=== PATIENT | female | born 1950 | race Caucasian/White ===

== ENCOUNTER 2019-03-04 07:49 | Inpatient (IN) | payer OTHER ==
--- NOTE | 2019-03-04 07:55 | EDPHY ---
H & P Time Seen by Provider: 03/04/19 07:55 HPI/ROS: CHIEF COMPLAINT: Left-sided weakness, ataxia HISTORY OF PRESENT ILLNESS: The patient presents the emergency department after she woke this morning with left-sided weakness and ataxia. The patient reports mild ongoing symptoms. She denies headache. The patient denies prior history of stroke or TIA. The patient reportedly was last normal at 10:00 a.m. Last night when she went to bed. The patient does have a pacemaker for history of heart block. The patient is not anticoagulated. The patient denies any history of fall or trauma. She denies additional acute medical complaints. REVIEW OF SYSTEMS: A comprehensive 10 point review of systems is otherwise negative aside from elements mentioned in the history of present illness. Source: Patient Exam Limitations: No limitations - Medical/Surgical History PMH: Past medical history: Arrhythmia, permanent pacemaker - Family History Significant Family History: No pertinent family hx - Social History Smoking Status: Never smoked - Physical Exam Exam: General Appearance: Alert, no distress Eyes: Pupils equal and round no pallor or injection ENT, Mouth: Mucous membranes moist Respiratory: There are no retractions, lungs are clear to auscultation Cardiovascular: Regular rate and rhythm Gastrointestinal: Abdomen is soft and nontender, no masses, bowel sounds normal Neurological: Alert and oriented x4, 5/5 strength noted all 4 extremities, slight drift noted in left upper extremity, mild left facial droop Skin: Warm and dry, no rashes Musculoskeletal: Neck is supple nontender Extremities: symmetrical, full range of motion Constitutional: Initial Vital Signs Temperature (C) 36.9 C 03/04/19 07:56 Heart Rate 57 L 03/04/19 07:56 Respiratory Rate 16 03/04/19 07:56 Blood Pressure 186/87 H 03/04/19 07:56 O2 Sat (%) 97 03/04/19 07:56 O2 Delivery Mode Room Air Allergies/Adverse Reactions: Penicillins Allergy (Verified 03/04/19 07:55) Home Medications: Medication Instructions Recorded Amlodipine Besylate 03/04/19 HCTZ (*) 03/04/19 Micardis 03/04/19 Medical Decision Making - Diagnostics Imaging Results: Imaging Impressions Head CT 03/04/19 08:18 Impression: 1. No acute intracranial process. 2. Age-appropriate generalized cerebral volume loss with sequelae of chronic microvascular ischemic disease. Findings and recommendations discussed with Keith Mcclain at 848 hour, 2018. Head CTA 03/04/19 08:18 Impression: 1. No acute vascular findings. 2. Occlusion of the left brachiocephalic vein. 3. Degenerative change in the cervical spine 4. Additional findings as above. Stenoses are calculated using [place] Symptomatic Carotid Endarterectomy Trial (NASCET) criteria. Findings discussed with Keith Mcclain on 03/04/2019 at 9:42 a.m. Neck CTA 03/04/19 08:18 Impression: 1. No acute vascular findings. 2. Occlusion of the left brachiocephalic vein. 3. Degenerative change in the cervical spine 4. Additional findings as above. Stenoses are calculated using [place] Symptomatic Carotid Endarterectomy Trial (NASCET) criteria. Findings discussed with Keith Mcclain on 03/04/2019 at 9:[address] angiogram head neck: Images reviewed by myself and discussed with radiologist Dr. Bernard. No evidence of critical stenosis or flow limiting disease present. ED Course/Re-evaluation: Patient presents to the ED with left-sided weakness truncal ataxia. Patient is noted to have an NIH stroke scale of 4-5. The patient woke up with the symptoms and is not a candidate for thrombolytics therapy. The patient did undergo a CT of the head which demonstrates no evidence of intracranial hemorrhage. Angiography of the head neck demonstrates no evidence of disease or flow limiting dissection. The patient does take an 81 mg aspirin on a daily basis. The patient has a cardiac pacemaker and cannot undergo MRI scanning. I did consult with the on-call neurologist who will see the patient in the hospital for further evaluation of her ischemic stroke. Consultation was made with the hospitalist service. The patient will be admitted primarily by Dr. Stoner. The patient will be seen in consultation by Dr. Moses Wills. Differential Diagnosis: Differential diagnosis considered includes hemorrhagic stroke, ischemic stroke, TIA, metabolic derangement - Data Points Laboratory Results: Laboratory Results 03/04/19 08:25 03/04/19 03/04/19 03/04/19 08:25 08:18 08:08 WBC 6.06 10^3/uL 10^3/uL (3.80-9.50) RBC 4.72 10^6/uL 10^6/uL (4.18-5.33) Hgb 14.3 g/dL g/dL (12.6-16.3) POC Hgb 14.6 gm/dL gm/dL (12.6-16.3) Hct 42.6 % % (38.0-47.0) POC Hct 43 % % (38-47) MCV 90.3 fL fL (81.5-99.8) MCH 30.3 pg pg (27.9-34.1) MCHC 33.6 g/dL g/dL (32.4-36.7) RDW 14.1 % % (11.5-15.2) Plt Count 357 10^3/uL 10^3/uL (150-400) MPV 9.3 fL fL (8.7-11.7) Neut % (Auto) 64.1 % % (39.3-74.2) Lymph % (Auto) 23.6 % % (15.0-45.0) Webb % (Auto) 10.9 % % (4.5-13.0) Eos % (Auto) 0.5 % L % (0.6-7.6) Baso % (Auto) 0.7 % % (0.3-1.7) Nucleat RBC Rel Count 0.0 % % (0.0-0.2) Absolute Neuts (auto) 3.89 10^3/uL 10^3/uL (1.70-6.50) Absolute Lymphs (auto) 1.43 10^3/uL 10^3/uL (1.00-3.00) Absolute Monos (auto) 0.66 10^3/uL 10^3/uL (0.30-0.80) Absolute Eos (auto) 0.03 10^3/uL 10^3/uL (0.03-0.40) Absolute Basos (auto) 0.04 10^3/uL 10^3/uL (0.02-0.10) Absolute Nucleated RBC 0.00 10^3/uL 10^3/uL (0-0.01) Immature Gran % 0.2 % % (0.0-1.1) Immature Gran # 0.01 10^3/uL 10^3/uL (0.00-0.10) POC Sodium 134 mEq/L L mEq/L (135-145) POC Potassium 3.8 mEq/L mEq/L (3.3-5.0) POC Chloride 96 mEq/L L mEq/L (97-110) POC Total CO2 27 mEq/L mEq/L (22-31) POC BUN 11 mg/dL mg/dL (7-23) POC Creatinine 0.7 mg/dL mg/dL (0.6-1.0) POC Glucose 129 mg/dL H mg/dL (70-100) POC Troponin I 0.01 ng/mL ng/mL (0.00-0.08) 03/04/19 08:05 WBC RBC Hgb POC Hgb Hct POC Hct MCV MCH MCHC RDW Plt Count MPV Neut % (Auto) Lymph % (Auto) Webb % (Auto) Eos % (Auto) Baso % (Auto) Nucleat RBC Rel Count Absolute Neuts (auto) Absolute Lymphs (auto) Absolute Monos (auto) Absolute Eos (auto) Absolute Basos (auto) Absolute Nucleated RBC Immature Gran % Immature Gran # POC Sodium POC Potassium POC Chloride POC Total CO2 POC BUN POC Creatinine POC Glucose POC Troponin I TNP Point of Care Test Results: Chemistry 03/04/19 03/04/19 03/04/19 08:18 08:08 08:05 POC Sodium 134 mEq/L L mEq/L (135-145) POC Potassium 3.8 mEq/L mEq/L (3.3-5.0) POC Chloride 96 mEq/L L mEq/L (97-110) POC Total CO2 27 mEq/L mEq/L (22-31) POC BUN 11 mg/dL mg/dL (7-23) POC Creatinine 0.7 mg/dL mg/dL (0.6-1.0) POC Glucose 129 mg/dL H mg/dL (70-100) POC Troponin I 0.01 ng/mL ng/mL TNP (0.00-0.08) ISTAT H&H 03/04/19 08:08 POC Hgb 14.6 gm/dL gm/dL (12.6-16.3) POC Hct 43 % % (38-47) Departure - Departure Disposition: [facility] Inpatient Acute Clinical Impression: Acute ischemic stroke Condition: Good Referrals: NONE *PRIMARY CARE P,. [Primary Care Provider] - As per Instructions
[2019-03-04] MEDS ORDERED: IOPAMIDOL (ISOVUE 370) 100 ML BTL IV ONE (08:23)
[2019-03-04 08:35] LABS: PLATELET COUNT 357 10^3/uL (150-400)
--- NOTE | 2019-03-04 10:29 | CPEKG ---
Test Reason : OPEN Blood Pressure : / mmHG Vent. Rate : 055 BPM Atrial Rate : 055 BPM P-R Int : 170 ms QRS Dur : 096 ms QT Int : 444 ms P-R-T Axes : 032 -23 075 degrees QTc Int : 425 ms Sinus rhythm Confirmed by Keith Mcclain ([id number]) on 03/04/2019 10:29:05 AM Referred By: Keith Mcclain Confirmed By:Keith Mcclain
[2019-03-04] MEDS ORDERED: ACETAMINOPHEN 325 MG TAB PO PRN (11:13)
[2019-03-04] MEDS ORDERED: ONDANSETRON 4 MG/2 ML VIAL IVP PRN (11:13)
[2019-03-04] MEDS ORDERED: ONDANSETRON DISINTEGRATING 4 MG TAB PO PRN (11:13)
[2019-03-04] MEDS ORDERED: CARBOXYMETHYLCELLULOSE 1% 0.4 ML DROPERETTE EACHEYE PRN (11:14)
[2019-03-04] MEDS ORDERED: NS 1,000 ML IV SCH (11:15)
[2019-03-04] MEDS ORDERED: FAMOTIDINE 20 MG TAB PO PRN (11:23)
--- NOTE | 2019-03-04 12:04 | GHP ---
[f rep st] HISTORY AND PHYSICAL DATE OF ADMISSION: 03/04/2019 CHIEF COMPLAINT: Weakness. HISTORY OF PRESENT ILLNESS: This is a 68-year-old female who presents with weakness. She went to be d around 10:00 last night feeling normal. She awoke at 3:00 a.m. feeling slightly abnormal, though s he was able to go to the bathroom. She then woke up later this morning complaining of significant we akness. She says that she felt very unsteady when she went up into the shower. She says that she ma y feel a little bit weak on her left side as well. She notes that she has had difficulty with ambula tion over the last few weeks and reports that she has stumbled on her left foot a few times. She was slurring her words at one point. She did not have any confusion. She has never had a history of a stroke. She is on an aspirin. She has a pacemaker which was placed about 10 years ago for what soun ds like pauses. She has never had atrial fibrillation. PAST MEDICAL/SURGICAL HISTORY: 1. Pacemaker placed for pauses. 2. Hypertension. 3. Ovarian mass that was removed 10 years ago. 4. History of right-sided acute hearing loss. 5. Scoliosis. 6. Cervical cancer at age 28. 7. Breast biopsies. 8. Melanomas removed off her face. 9. Hernia surgery. MEDICATIONS: Please see medication reconciliation. ALLERGIES: Amoxicillin and penicillins. SOCIAL HISTORY: She drinks a few glasses of wine a night. She just recently moved here from [facility]. She is still staying with her sister until her belongings arrive tomorrow. FAMILY HISTORY: Reviewed and noncontributory. REVIEW OF SYSTEMS: 10-point review of systems is conducted and is negative except per HPI. PHYSICAL EXAMINATION: VITAL SIGNS: Blood pressure 164/81, heart rate 55, respiration rate 16, satur ating 91% on room air, temperature is 36.9. GENERAL: Ms Gonzalez is a pleasant female who is resting comfortably, in no acute distress. HEENT: Shows her to be normocephalic, atraumatic. CARDIOVASCUL AR: Regular rate and rhythm. No murmurs, rubs, or gallops. PULMONARY: Lungs clear to auscultation bilaterally. ABDOMEN: Soft, nontender, nondistended. SKIN: No rash. : No [place]. NEUROLOGIC: Shows her to be alert and oriented x3. She is very slightly slow to answer questions. She has no dysarthria. Cranial nerves show mild left-sided facial droop with left tongue deviation. Otherwise they are intact. Motor shows 4/5 in both the upper and lower extremity multiple muscle group testing . Sensation to light touch is intact bilaterally and symmetrically. She has decreased [id number] on the left side. She has mild left-sided pronator drift. LABORATORIES: Basic metabolic panel is relatively unremarkable, though her glucose is 129. CBC is n ormal. DATA: 1. Discussed with Dr. Mcclain. Will admit to Med/Surg. 2. I reviewed her head and neck CT angiogram. This shows nothing acute. It does show left-sided br achiocephalic vein occlusion. 3. Head CT shows nothing acute. 4. ECG which I personally reviewed and interpreted shows sinus rhythm. Rate is 55. She has T-wave inversion in leads V1 and V2. IMPRESSION AND PLAN: 1. Acute cerebrovascular accident: This is the most likely explanation given her left-sided finding s as well as some cerebellar findings. She is unable to get an MRI given her pacemaker. Will reques t that her pacemaker be interrogated, place her on telemetry while she is here, check an echocardiogr am, order an aspirin, check her lipids, request a Neurology consult. If Neurology agrees, she would be a good candidate for dual-antiplatelet therapy for 3 weeks. 2. Vascular disease evidenced by brachiocephalic vein occlusion: Check lipids. Continue her aspiri n. Consider dual therapy. 3. Hypertension: Will hold her medicines for today and allow her some permissive hypertension. We will restart her home medicines tomorrow. 4. Aspiration: She failed her bedside swallow study. We will ask Speech for formal evaluation. 5. Venous thromboembolism risk: [place]. /[id number]/MODL
--- NOTE | 2019-03-04 12:44 | GCON ---
[f rep st] CONSULTATION NEUROLOGY CONSULT REFERRING PHYSICIAN: Tony Champagne MD CHIEF COMPLAINT: Left-sided weakness. HISTORY OF PRESENT ILLNESS: Ms. Gonzalez is a very pleasant 68-year-old lady with a longstanding history of hypertension and diet treated dyslipidemia. She just moved here from [facility] and is in the process of moving into a new home. She went to bed at 10 p.m. feeling completely normal. She woke up at 3 a.m. to urinate and felt off balance, but did not think much of it. Then she woke up at 6 a.m. for the day. At that time when getting out of bed, she felt weak on the left side. She proceeded to take a shower and felt unsteady due to left- sided weakness in the shower. Because of these symptoms, she was brought into the ED for a stroke evaluation by her sister. She is on blood pressure medication along with a baby aspirin daily. She had a pacemaker placed around 10 years ago for what sounds like pauses. She does not have a diagnosis of atrial fibrillation that she is aware of. Her pacemaker is not MRI compatible apparently. The patient was seen in the ED and had a full stroke evaluation. Please see those notes for details. Head CT without contrast did not show any acute findings. There were no obvious areas of early infarct or hemorrhage. CTA of the head and neck showed no acute vascular findings. No large vessel occlusion intracranially. In the ED, her NIH stroke score was between 4 and 5 and she was presenting approximately 10 hours after symptom onset and, therefore, she was deemed not a candidate for IV tPA as she was out of both the 3 hour and 4.5 hour window. In addition, CT angiography did not show a large vessel occlusion that would make her a possible interventional stroke treatment candidate. Therefore, she was admitted for further evaluation. REVIEW OF SYSTEMS: A 10-point review of systems was done, only pertinent to the HPI. For past medical history, social history, family history, home medications, and allergies, see Dr. Champagne's H and P. PHYSICAL EXAM: VITAL SIGNS: Blood pressure is 140s over 80s, temperature 36.9 , heart rate 60s, respirations 16. GENERAL: She is awake, alert, very pleasant. NEUROLOGIC: Higher mental function: She has no aphasia. She names , follows commands, and comprehends normally. On cranial nerve exam, she has an upper motor neuron left facial weakness. Extraocular movements are full. On motor exam, she has mild left hemiparesis. Overall, her pattern is face and arms greater than leg in terms of her left-sided hemiparesis. Her sensory exam is normal to light touch throughout. There is no sensory extinction or neglect. No significant ataxia in her limbs. IMPRESSION/PLAN: 1. Stroke. Overall, her clinical history and neurologic exam are consistent with a probable lacunar-type infarct in the right hemisphere subcortical white matter. This is based on her exam findings, specifically the absence of cortical signs on exam, in addition to the other findings noted in the neurologic exam. She has vascular risk factors of hypertension and diet treated dyslipidemia. Certainly, a cardioembolic stroke is in the differential diagnosis as well. She cannot get a MRI due to her pacemaker. Going forward, I recommend the followin. Aspirin 81 mg plus Plavix 75 mg daily for 21 days, then aspirin (enteric coated) 325 mg daily alone thereafter. We discussed risks, benefits, and alternatives of dual anti-platelet therapy including the risk of bleeding and bruising. If there is evidence of atrial fibrillation, then the treatment would be oral anticoagulation. 2. Statin therapy. 3. Speech, occupational, and physical therapy consults for ongoing evaluation of speech, swallowing, weakness, and disposition recommendations. 4. Echocardiogram with bubble study. 5. ECG telemetry overnight to screen for paroxysmal atrial fibrillation. If this is negative, outpatient 30-day event monitor and/or consideration for implantable loop monitor for long-term screening for paroxysmal atrial fibrillation. 6. We will repeat a head CT tomorrow morning to assess whether interval changes have developed confirming the location of the stroke. No further recommendations now. We will follow up on the above. Please do not hesitate to call if there are any questions or change in this patient's neurologic status. Seventy total minutes floor time; over 50% in direct counseling and coordination of care. Thank you for the consult. /[id number]/MODL MTDD
--- NOTE | 2019-03-04 16:04 | ECHO ---
[email or web address] [address] [address] Main: [phone] Echocardiography Examination Transthoracic Name: JAYCE WINSTON MR#: [id number] Study Date: 03/04/2019 Study Time: 01:07 PM Date of : 1950 Age: 68 year(s) Height: 167.6 cm (66 in.) Weight: 63.5 kg (140 lb.) BSA: 1.72 m2 Gender: Female Examination: Echo with Agitated Saline Contrast: Image Quality: Rhythm: Normal sinus rhythm Heart Rate: 55 bpm BP: 147 mmHg/87 mmHg Indication: Ischemic Stroke Procedure Staff Referring Physician: Drafter Refrigeration: Ion Owens RDCS Reading Physician: Amanda Burgos MD Requesting Provider: Ordering Physician: Tony Champagne Indication: Ischemic Stroke Measurements Chambers AV/MV Label Value Normal Value Label Value Normal Value LVOT Vmax 0.85 m/s (0.7m/s - 1.1m/s) AR PHT 0.55 s LVOT VTI 22.2 cm (18cm - 22cm) AR PHT 551 ms LVDd, 2D 4.5 cm (3.9cm - 5.3cm) AR Vmax 3.04 m/s LVDs, 2D 2.8 cm (2.1cm - 4cm) AV PGmax 7 mmHg IVSd, 2D 0.7 cm (0.6cm - 1.1cm) AV PGmean 4 mmHg LVPWd, 2D 0.9 cm AV Vmax 1.36 m/s LVEF, 2D 68 % (54% - 74%) MV E Vmax 0.58 m/s LVOT PGmean 1 mmHg MV A Vmax 0.76 m/s LVOT Vmean 0.55 m/s MV E/A 0.76 RVDd, 2D 1.9 cm (1.9cm - 3.8cm) MV E/E' lateral 15.3 LA Volume, BP 35 ml (22ml - 52ml) MV E/E' septal 11.1 (0.45 - 1.25) LAESV index, BP 20.3 ml/m2 MV E' septal 0.05 m/s Additional Vessels MV E' lateral 0.04 m/s Label Value Normal Value MV E/E' mean 12.89 AoRoot, MM 2.8 cm (2.2cm - 3.7cm) MV E' mean 0.04 m/s TV/PV Label Value Normal Value RA Pressure 5 mmHg RVSP 35 mmHg Patient: JAYCE WINSTON Study Date: 03/04/2019 Page 1 of 2 01:07 PM TR Pmax 30 mmHg TR Vmax 2.74 m/s PV PGmax 4 mmHg PV Vmax, Caliper 0.98 m/s (0.6m/s - 0.9m/s) Conclusions 1. The left ventricle is normal in size and systolic function. There was normal wall motion. Ejection fraction is approximately 65%. 2. The right ventricle is normal in size and systolic function. Pacing lead seen in the right heart. 3. there is both color Doppler and agitated saline evidence of interatrial shunting suggestive of PFO or ASD. 4. mild aortic regurgitation. 5. Trivial tricuspid regurgitation with normal estimated pulmonary pressure. 6. No prior echo Findings Left Ventricle: Left ventricle is normal in size. Normal global systolic left ventricular function. Left ventricle wall thickness is normal. There are no regional wall motion abnormalities. Diastolic Dysfunction is indeterminate. Right Ventricle: Normal size right ventricle. Right ventricular systolic function is normal. There is a pacing/ICD wire present in the right ventricle. Left Atrium: The left atrium is normal in size. IAS: An agitated saline study was performed and was positive for intracardiac shunting. Right Atrium: The right atrium is normal in size. Mitral Valve: Mitral valve appears structurally normal. Trivial mitral regurgitation. No mitral valve stenosis. Aortic Valve: Aortic leaflets are normal in appearance and function. Mild aortic regurgitation is present. The aortic valve is probably trileaflet. Tricuspid Valve: Tricuspid valve leaflets are structurally normal. Trivial tricuspid regurgitation. Right Ventricular systolic pressure is measured at 35 mmHg. Pulmonic Valve: Pulmonic leaflets are normal in appearance and function. Aorta: The aorta is normal. The aortic root size in M-mode measures 2.8 cm. Aorta Measurements AoRoot, MM is 2.8 cm. Pericardium: No pericardial effusion. Exam Details Procedure Ordered: Echo with Agitated Saline (No Signature Object) Patient: JAYCE WINSTON Study Date: 03/04/2019 Page 2 of 2 01:07 PM [id number]
[2019-03-04] MEDS ORDERED: CARBOXYMETHYLCELLULOSE 0.5% 0.4 ML DROPERETTE EACHEYE PRN (18:02)
[2019-03-04] MEDS: OLOPATADINE 0.1% 5 ML OPHT.BTL EACHEYE SCH (21:23)
[2019-03-04] MEDS: CARBOXYMETHYLCELLULOSE 0.5% 0.4 ML DROPERETTE EACHEYE SCH ×2 (22:30→22:32)
[2019-03-05] MEDS ORDERED: PNEUMOC 13-VAL CONJ-DIP CRM/PF 0.5 ML SYR (PREVNAR 13) IM ONE (05:12)
[2019-03-05] MEDS: CARBOXYMETHYLCELLULOSE 0.5% 0.4 ML DROPERETTE EACHEYE SCH ×4 (05:23→21:09)
[2019-03-05] MEDS: ASPIRIN 81 MG CHEWABLE TAB PO SCH (10:09)
--- NOTE | 2019-03-05 11:08 | NEUROPROG ---
Assessment: 1. Stroke Repeat head CT this morning did not show any new hypodensity in the right hemisphere. This is likely due to the small size of a lacunar infarct in the subcortical white matter. We discussed that the pathophysiology is likely lacunar/small-vessel. The echocardiogram did show right to left shunting and consistent with PFO and/or ASD. We will obtain bilateral lower extremity ultrasound to rule out DVT and light of this finding. If no DVT is present, then again the differential diagnosis for stroke mechanism is small vessel versus cardioembolic -- More likely small-vessel. Going forward I recommend the followin. Dual anti-platelet therapy for 21 days; then 325 mg of aspirin coated with meals thereafter. This is assuming we do not find any atrial fibrillation. If we detect atrial fibrillation, she can start oral anticoagulation effective immediately. 2. Statin therapy 3. As she has a pacemaker, we will have interrogated for atrial fibrillation. She needs to establish care with a charger tester locally. Will help facilitate that. 4. Speech, occupational physical therapies. She will likely need inpatient rehabilitation. 5. I will follow-up with her in 8-12 weeks to review the above. We will continue to follow as needed. Please do not hesitate to call for any changes in this patient's neurologic status or any questions. Subjective: No new symptoms Objective: Vital Signs Temp Pulse Resp BP Pulse Ox 36.7 C 55 L 15 137/79 H 97 03/05/19 07:57 03/05/19 07:57 03/05/19 07:57 03/05/19 07:57 03/05/19 07:57 Laboratory Results 03/05/19 05:00 03/04/19 03/05/19 03/06/19 05:59 05:59 05:59 Intake Total 2375 Output Total 1550 Balance 825 Awake and alert Left dennis paresis, face arm and leg 35 total minutes floor time; over 50% counseling and coordination of care. Allergies/Adverse Reactions: amoxicillin Allergy (Verified 03/04/19 10:42) Hives Penicillins Allergy (Verified 03/04/19 10:42) Hives
--- NOTE | 2019-03-05 11:59 | ASMTCMCOM ---
CM Note CM Note Notes: Reviewed chart, pt admitted to hospital for left sided weakness. She woke up feeling a bit weak on her left side and admits to stumbling a few times in the past weeks. PT recommending inpt rehab and pt is agreeable. Pt has just moved to [place] from [facility] with her and is staying with her Sister. DC Plan: TBD Date Signed: 03/05/2019 11:57 AM Electronically Signed By:Karolina Delcid RN
[2019-03-05] MEDS: CETIRIZINE 10 MG TAB PO SCH (13:47)
[2019-03-05] MEDS: ENOXAPARIN 40 MG/0.4 ML SYR SC SCH (13:47)
[2019-03-05] MEDS: CALCIUM CARBONATE 500 MG TAB PO SCH (13:48)
[2019-03-05] MEDS: OLOPATADINE 0.1% 5 ML OPHT.BTL EACHEYE SCH ×2 (13:48→21:09)
--- NOTE | 2019-03-05 14:15 | HOSPPROG ---
Hospitalist Progress Note Assessment/Plan: # R lacunar CVA - ?ASD/PFO seen on echo - seems unlikely to be the etiology, more suspect small vessel - no a-fib on ppm interrogation - cont asa, start plavix; DAPT x 21 days, then asa 325mg thereafter - start crestor - f/u Dr Wills in 8-12 weeks - he will discuss the ASD at that point # PVD - asa/plavix/statin as above # htn - restart norvasc, still holding valsartan and hctz Subjective: feels as though she is physically improved slightly today Objective: Vital Signs Temp Pulse Resp BP Pulse Ox 38.0 C 55 L 16 144/74 H 97 03/05/19 11:06 03/05/19 11:06 03/05/19 11:06 03/05/19 11:06 03/05/19 11:06 Laboratory Results 03/05/19 05:00 03/04/19 03/05/19 03/06/19 05:59 05:59 05:59 Intake Total 2375 Output Total 1550 Balance [address] Wills US reviewed tele personally reviewed - Physical Exam Constitutional: other (moving very slwoly) Eyes: anicteric sclera Ears, Nose, Mouth, Throat: hearing normal Cardiovascular: No edema Respiratory: no respiratory distress Gastrointestinal: No distension Genitourinary: No griffin in urethra Skin: normal color Musculoskeletal: abnormal gait Neurologic: AAOx3 Psychiatric: not anxious ICD10 Worksheet Patient Problems: Problems Problem Status Onset Acute ischemic stroke Acute
--- NOTE | 2019-03-05 15:45 | PDMN ---
Medical Necessity Medical necessity: Change to IP, as of 03/05/19, per & MCG M-83; los >2 mn for ongoing management of R lacunar CVA; requiring further monitoring, med management & therapies
[2019-03-05] MEDS: CLOPIDOGREL BISULFATE 75 MG TAB PO SCH (15:59)
[2019-03-05] MEDS: DOXYCYCLINE HYCLATE 100 MG CAP/TAB PO SCH (21:17)
[2019-03-06] MEDS: CARBOXYMETHYLCELLULOSE 0.5% 0.4 ML DROPERETTE EACHEYE SCH ×2 (05:09→13:43)
[2019-03-06] MEDS ORDERED: LACTULOSE 20 GM/30 ML UDCUP PO PRN (05:16)
[2019-03-06] MEDS ORDERED: POLYETHYLENE GLYCOL 3350 17 GM PKT PO PRN (05:16)
[2019-03-06] MEDS ORDERED: BISACODYL 10 MG SUPP PR PRN (05:16)
[2019-03-06] MEDS: ASPIRIN 81 MG CHEWABLE TAB PO SCH (08:10)
[2019-03-06] MEDS: DOXYCYCLINE HYCLATE 100 MG CAP/TAB PO SCH (08:11)
[2019-03-06] MEDS: CLOPIDOGREL BISULFATE 75 MG TAB PO SCH (08:11)
[2019-03-06] MEDS: CALCIUM CARBONATE 500 MG TAB PO SCH (08:12)
[2019-03-06] MEDS: CETIRIZINE 10 MG TAB PO SCH (08:12)
[2019-03-06] MEDS: ENOXAPARIN 40 MG/0.4 ML SYR SC SCH (08:13)
[2019-03-06] MEDS ORDERED: ROSUVASTATIN CALCIUM 10 MG TAB PO SCH (09:00)
[2019-03-06] MEDS ORDERED: SENNOSIDES/DOCUSATE SODIUM TAB PO SCH (09:00)
[2019-03-06] MEDS ORDERED: amLODIPine BESYLATE 5 MG TAB PO SCH (09:00)
--- NOTE | 2019-03-06 09:53 | ASMTLACE ---
LACE Length of stay for Answers: 1 day current admission Acuity / Level of Answers: Yes Care: Did the patient have an inpatient admission? Comorbidities - select Answers: Opioid dependence all that apply / Chronic pain Other Notes: Pacemaker; HTN # of Emergency department Answers: 1-2 visits in the last 6 months Score: 10 Date Signed: 03/06/2019 09:52 AM Electronically Signed By:Karolina Delcid RN
--- NOTE | 2019-03-06 10:10 | NEUROPROG ---
Assessment: 1. Stroke Repeat head CT this morning did not show any new hypodensity in the right hemisphere. This is likely due to the small size of a lacunar infarct in the subcortical white matter. We discussed that the pathophysiology is likely lacunar/small-vessel. The echocardiogram did show right to left shunting and consistent with PFO and/or ASD. Bilateral lower extremity ultrasound did not show any DVT. The differential diagnosis for stroke mechanism is small vessel versus cardioembolic -- More likely small-vessel disease. Going forward I recommend the followin. Dual anti-platelet therapy (Plavix 75 mg plus aspirin 325 mg) for 21 days; then 325 mg of aspirin coated with meals thereafter. This is assuming we do not find any atrial fibrillation. If we detect atrial fibrillation, she can start oral anticoagulation effective immediately. 2. Statin therapy 3. As she has a pacemaker, we will interrogate for atrial fibrillation (none reported thus far). She will need ongoing surveillance for PAF via interrogation of her pacemaker. She needs to establish care with a breeding technician locally. Cardiology consultation as outpatient for ongoing care. 4. She is being transferred to inpatient rehabilitation later today. 5. I will follow-up with her in 8-12 weeks to review the above. We will sign off. Please do not hesitate to call for any changes in this patient's neurologic status or any questions. Subjective: no new sx's Objective: Vital Signs Temp Pulse Resp BP Pulse Ox 36.6 C 55 L 18 145/78 H 98 03/06/19 08:01 03/06/19 08:01 03/06/19 08:01 03/06/19 08:10 03/06/19 08:01 03/05/19 03/06/19 03/07/19 05:59 05:59 05:59 Output Total 1000 Balance -1000 a/a no aphasia Left HP, mild 25 total minutes floor time; over 50% counseling and coordination of care. Allergies/Adverse Reactions: amoxicillin Allergy (Verified 03/04/19 10:42) Hives Penicillins Allergy (Verified 03/04/19 10:42) Hives
--- NOTE | 2019-03-06 10:45 | GDS ---
[f rep st] DISCHARGE SUMMARY FINAL DIAGNOSES: 1. Suspected right lacunar cerebrovascular accident. 2. Peripheral vascular disease. 3. Hypertension. 4. History of left eye infection. HOSPITAL COURSE: This is a 68-year-old female, admitted with left-sided weakness. She has a history of a pacemaker that was placed for what appeared to have been pauses; thus, she could not get an MRI . She was seen by Neurology, her clinical diagnosis is a right-sided lacunar infarct. She still ma s have some left-sided weakness because of this. She has been started on appropriate medication adia gement including aspirin, Plavix for 21 days (change aspirin to 325 mg when Plavix is discontinued), as well as Crestor. Her workup did show a possible ASD or PFO, although strong suspicion is that thi s is a small-vessel stroke, not a cardioembolic source. Her pacemaker was interrogated, which showed noted atrial fibrillation. She had no atrial fibrillation on telemetry. She will follow up with Dr Katie Wills on discharge. She will also follow up with Dr. Burgos of Cardiology to continue to monitor for o ccult atrial fibrillation. In terms of her hypertension, she was initially not needing antihypertensives. Her amlodipine has be en restarted and her telmisartan is being restarted on the day of discharge. Her hydrochlorothiazide has been held. This may need to be restarted or consideration to up-titration for amlodipine. She has been on doxycycline for over a year for an eye infection. She has no clinical signs or sympt oms of an eye infection. Her prescription was due to run out very soon. I am stopping the doxycycli ne. If she develops any further eye problems, she will report that may need to see an ophthalmologis t. 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 She is on appropriate medication management including aspirin, Plavix and a statin. DISPOSITION: She is discharged to inpatient rehab in stable condition. BILLING: I spent more than 30 minutes on the day of discharge coordinating care. /[id number]/MODL
--- NOTE | 2019-03-06 11:02 | PDIAF ---
- Diagnosis Diagnosis: Stroke Code Status: Full Code - Medication Management Discharge Medications: electronically signed and located in the Home Medication List. - Orders Diet Texture: Regular Texture Diet, Thin Liquids, Meds Whole w/Liquids - Follow Up Care Current Providers and Referrals: NONE *PRIMARY CARE P,. [Primary Care Provider] - As per Instructions Moses Wills MD [Medical Doctor] - Maryann Bosch MD [Medical Doctor] - Amanda Burgos MD [Medical Doctor] -
[2019-03-06] MEDS: OLOPATADINE 0.1% 5 ML OPHT.BTL EACHEYE SCH (11:25)
--- NOTE | 2019-03-06 11:34 | ASMTDCNOTE ---
Case Management Discharge Discharge Order Complete? Answers: Yes Patient to Obtain Answers: Other Notes: [facility] Medications Transportation Arranged Answers: Other Notes: RN Faxed Final Orders Answers: Yes Agency/Facility Transfer Answers: Yes Report Printed & Faxed to Receiving Agency Family Notified Answers: Yes Discharge Comments Notes: D/w , patient accepted by Kate at [facility]. Pt to transfer at 1pm, RN to call report. Date Signed: 03/06/2019 09:59 AM Electronically Signed By:Karolina Delcid RN
[2019-03-06 12:29] VITALS: BP 142/74
--- NOTE | 2019-03-07 10:07 | ASDISCHSUM ---
Discharge Information Plan Status: Medically Cleared to Leave: Discharge Date:03/06/2019 02:15 PM CM D/C Disposition: ADT D/C Disposition:[facility] IP Projected Discharge Date:03/06/2019 11:00 AM Transportation at D/C: Discharge Delay Reason: Follow-Up Date:03/06/2019 11:00 AM Discharge Slot: Final Diagnosis: Placement Information Referral Type:Rehabilitation Hospital Referral ID:[id number] Provider Name:[facility] Address 1:[address] Phone Number: Address 2: Fax Number: [facility]:[place] Selection Factors: State:[place] Patient Contact Information Contact Name:SATYA Relationship: Address:[address] Work Phone: City:[place] Phone: [facility] Code:[place] [address] Email: Financial Information Financial Class:Medicare Primary Plan Desc:MEDICARE INPATIENT Primary Plan Number:[id number] Secondary Plan Desc:[facility] Secondary Plan Number:[id number] Assessment Information LACE LACE Length of stay for Answers: 1 day current admission Acuity / Level of Answers: Yes Care: Did the patient have an inpatient admission? Comorbidities - select Answers: Opioid dependence all that apply / Chronic pain Other Notes: Pacemaker; HTN # of Emergency department Answers: 1-2 visits in the last 6 months Score: 10 Date Signed: 03/06/2019 09:52 AM Electronically Signed By:Karolina Delcid RN [facility] Progress Note CM Ruchi FISHER Note Notes: Reviewed chart, pt admitted to hospital for left sided weakness. She woke up feeling a bit weak on her left side and admits to stumbling a few times in the past weeks. PT recommending inpt rehab and pt is agreeable. Pt has just moved to [place] from [facility] with her and is staying with her Sister. DC Plan: TBD Date Signed: 03/05/2019 11:57 AM Electronically Signed By:Karolina Delcid RN Case Management Discharge Plan Note Case Management Discharge Discharge Order Complete? Answers: Yes Patient to Obtain Answers: Other Notes: [facility] Medications Transportation Arranged Answers: Other Notes: RN Faxed Final Orders Answers: Yes Agency/Facility Transfer Answers: Yes Report Printed & Faxed to Receiving Agency Family Notified Answers: Yes Discharge Comments Notes: D/w , patient accepted by Kate at [facility]. Pt to transfer at 1pm, RN to call report. Date Signed: 03/06/2019 09:59 AM Electronically Signed By:Karolina Delcid RN Intervention Information Intervention Type:*REYES-Signed Date of Service:03/04/2019 02:05 PM Patient Type:Observation Staff Member:Nan Ribeiro Hours: Discipline: Severity: Comment: Intervention Type:*Naman Michelle Date of Service:03/04/2019 02:33 PM Patient Type:Inpatient Staff Member:DIAMOND Robison Courtney Hours: Discipline: Severity: Comment:
== END 2019-03-06 14:15 | DRG 65 ==
LOC: F3N 11:20 → OBSVTOIN 03-05 14:40
PROVIDERS: ADMIT Student in an Organized Health Care Education/Training Program; ATTEND Internal Medicine
DX: I63.89 Other cerebral infarction (principal); G81.94 Hemiplegia, unspecified affecting left nondominant side; R29.704 NIHSS score 4; I73.9 Peripheral vascular disease, unspecified; I10 Essential (primary) hypertension; E78.5 Hyperlipidemia, unspecified; Z95.0 Presence of cardiac pacemaker; Z23 Encounter for immunization; Z85.41 Personal history of malignant neoplasm of cervix uteri
CPT/HCPCS: 82435-PO; 82565-PO; 82947-PO; 84132-PO; 84295-PO; 84484-ER; 84520-PO; 85014-ER; 92526-GN; 92610-GN; 97110-GP; 97112-GP; 97116-GP; 97162-GP; 97166-GO; 97530-GP; 97535-GO; G0009; G0378; J1650; Q9967

== ENCOUNTER 2019-03-06 14:00 | Inpatient (IN) | payer OTHER ==
[2019-03-06] MEDS ORDERED: CARBOXYMETHYLCELLULOSE 0.5% 0.4 ML DROPERETTE EACHEYE PRN (14:50)
[2019-03-06] MEDS ORDERED: BISACODYL 10 MG SUPP PR PRN (14:52)
--- NOTE | 2019-03-06 16:12 | GHP ---
[f rep st] HISTORY AND PHYSICAL POST ADMISSION PHYSICIAN EVALUATION AND REHABILITATION TREATMENT PLAN DATE OF ADMISSION: 03/06/2019 DATE OF EVALUATION: 03/06/2019 TIME OF EVALUATION: 1440. REFERRING FACILITY: [facility]. IMPAIRMENT GROUP: 1.1. DATE OF ONSET: 03/04/2019. REFERRING PHYSICIAN: Dr. Champagne. CONSULTING PHYSICIAN: Neurologist, Dr. Moses Wills. REHABILITATION DIAGNOSIS: Cerebrovascular accident with left-sided weakness. ETIOLOGIC DIAGNOSIS: Left body involvement (right brain). HISTORY OF PRESENT ILLNESS: This patient presented to the emergency department after she woke up in the morning with left-sided weakness and ataxia. She had last been normal at 10:00 pm the night before. She has a history of a heart block and a pacemaker placement and so could not have an MRI. She had a CT of the head done and CT angiography. There was a Neurology consultation. Head CT and CT angiography showed no acute findings nor was there early infarct or hemorrhage and no large vessel occlusions. She was out of the time window for thrombolysis. She was diagnosed with a likely right-sided subcortical lacunar infarct. She was started on clopidogrel and aspirin at 81 mg daily. After 21 days, she is to discontinue the clopidogrel and continue aspirin at 325 mg daily. She was also begun on rosuvastatin. Echocardiogram showed a possible atrial septal defect or patent foramen ovale, but as this was likely a small vessel stroke, it was considered less likely to be cardioembolic. Pacemaker was interrogated and did not show any atrial fibrillation and she had no atrial fibrillation on telemetry. Antihypertensives were held and then amlodipine was restarted. On the day of discharge, she is resuming telmisartan. She was previously on hydrochlorothiazide, as well, but this has not been restarted. STUDIES AND LABS IN THE HOSPITAL: She had a normal CBC. Serum chemistry showed mild hyponatremia with a sodium of 134 on 03/04/2019, it remained 134 on . Otherwise, renal function and electrolytes were overall within normal limits. Hemoglobin A1c was 5.3. Liver function tests were normal. Lipid panel revealed an LDL of 103. ACTIVE COMORBIDITIES: She has no active tier 1, tier 2 or tier 3 comorbidities. PAST MEDICAL HISTORY: 1. Heart block. 2. Hypertension. 3. Ovarian mass. 4. Right-sided hearing loss. 5. Scoliosis. 6. Cervical cancer at age 28. 7. Hernia. PAST SURGICAL HISTORY: 1. Pacemaker placement approximately 10 years ago. 2. Resection of ovarian mass approximately 10 years ago. 3. Breast biopsies. 4. Melanoma removal from her face. 5. Hernia surgery. MEDICATIONS: Prior to admission: 1. Amlodipine. 2. Hydrochlorothiazide. 3. Telmisartan. Admission medications: 1. Amlodipine 5 mg p.o. daily. 2. Aspirin 81 mg p.o. daily. 3. Calcium carbonate 500 mg p.o. daily. 4. Artificial Tears four times daily and p.r.n. 5. Cetirizine 10 mg p.o. daily. 6. Clopidogrel 75 mg p.o. daily. 7. Olopatadine 0.1% each eye twice daily. 8. Ranitidine 75 mg p.o. daily p.r.n. 9. Rosuvastatin 10 mg p.o. daily. 10. Telmisartan 80 mg p.o. daily. ALLERGIES: She is allergic to amoxicillin and penicillins. PSYCHOSOCIAL HISTORY: She is . She has recently moved from [facility] to [place] with her . She has a sister who lives nearby in [place] and she has other family elsewhere in the [facility]. She is a nonsmoker. She is retired traveling electrician. FAMILY HISTORY: Noncontributory and there is no history of blood clotting. REVIEW OF SYSTEMS: She thinks that her muscle strength on the left side has been improving. She denies vision changes, headaches, or loss of sensation. She reports that she has to eat slowly and deliberately in order to swallow safely. Her weight has been stable, though she thinks she may have lost some weight during her hospitalization. Her appetite is returning to normal. She describes symptoms consistent with irritable bowel syndrome with constipation alternating with diarrhea. Her last bowel movement was this morning and she reports she had prune juice today. She denies dysuria or urinary frequency. She denies fevers or chills. She denies cough or dyspnea. She denies chest pain or palpitations. She denies rash or skin breakdown. She denies joint pain or joint swelling. She is in good spirits. She snores and reports that her has to sleep in a different room. She reports that she was tested for sleep apnea and came out "borderline." Otherwise a 10-point review of systems is negative. PHYSICAL EXAM: VITAL SIGNS: Blood pressure is 132/74, heart rate is 55, respiratory rate is 16, oxygen saturation is 95% on room air. Temperature is 36.8 degrees centigrade. GENERAL: This is a well-nourished, well-developed woman lying in bed, dressed in hospital gown, cooperative and in no acute distress. HEENT: Extraocular movements are intact. Pupils are equal, round, and reactive to light. She has a crowded airway, Mallampati class 3. NECK: Supple. HEART: There is a regular rate and rhythm with no murmurs, rubs, or gallops. She is slightly bradycardic. LUNGS: Clear to auscultation bilaterally. ABDOMEN: Soft, nontender, nondistended with normoactive bowel sounds and no hepatosplenomegaly. EXTREMITIES: There is no cyanosis, clubbing , or edema. Radial and dorsalis pedis pulses are 2+ bilaterally. NEUROLOGIC: She is alert and oriented x3. She has left facial droop, but otherwise cranial nerves 2-12 are grossly intact. She is able to maintain a labial seal. Motor strength is slightly reduced on the left and normal on the right upper extremities and lower extremities. Hamstring strength is 4/5 bilaterally. Extensor hallucis longus is 3/5 on the left and normal on the right. She otherwise has normal strength with foot dorsiflexion and plantar flexion bilaterally. Rapid alternating movements are normal, but she has incomplete pronation and supination with the left hand. Sensation is intact to light touch. Bxnqyn-qr-[id number] testing is normal bilaterally. There is no extinction of sensation to double simultaneous stimulation. CURRENT LEVEL OF FUNCTION: Per the preadmission screen. She was on a regular diet with thin liquids. She was alternating solids with liquids. She was checked for pocketing on the left side. She had limited bite sizes. She was taking fluids with cups and it is noted that mild dysphagia had resolved. Grooming was done with contact guard at the sink with a front-wheeled walker. Dressing required minimal assist with voice cues. Toileting was done with contact guard and voice cues for laquita care and contact guard to minimal assist for transfers. She was continent of bowel and bladder. Bed mobility required contact guard. Transfers required minimal assist with voice cues using a front- wheeled walker. Seated balance required standby assist to contact guard assist. Standing balance required minimal assist with voice cues. Endurance was fair. She was able to ambulate 100 feet with a front-wheeled walker and voice cues. She had a wide base of support and decreased stride length on the left. She was able to walk 80 feet without an assistive device with moderate assist and voice cues with a wide base of support and decreased stride length. She was noted to have mild dysarthria. She was considered a fall risk. She was noted to have decreased attention to the left side. On today's exam, there are no significant changes from the preadmission screen. IMPRESSION: This is a 68-year-old woman who suffered a right-sided stroke with left weakness. Presumably it was lacunar and not cardioembolic. There was no atrial fibrillation on telemetry and her pacemaker was interrogated with no record of atrial fibrillation. She was continued on aspirin and started on clopidogrel, as well as , rosuvastatin. She was initially managed with no antihypertensives and allowed permissive hypertension with readings in the 140s to 160s. She subsequently was started on amlodipine and on the day of hospital discharge, telmisartan was resumed. She had mild hyponatremia which was stable. She was otherwise medically stable and appropriate for inpatient rehabilitation. There was an incidental finding of brachiocephalic artery occlusion consistent with peripheral vascular disease. Her goal is to complete a rehabilitation stay and then return home with outpatient services. For a safe discharge, it is anticipated that she will progress to modified independence for all ADLs and functional activities. She will need to demonstrate follow-through with compensatory strategies for feeding and for functional tasks as needed. She will need to have a good understanding and be able to manage her medications. She and her family will need education regarding her neurologic deficits and assessment for deficits. She will have therapy with physical therapy, occupational therapy, and speech and language pathology for 60 minutes per day for each discipline on 5-7 days of the week. Her expected duration of stay is 5-7 days. It is anticipated that upon discharge, she will benefit from outpatient occupational therapy, speech and language pathology and physical therapy. Additionally, she will likely benefit from a stroke support group. PLAN: 1. Cerebrovascular accident, likely right subcortical lacunar, with left-sided weakness and hemineglect, which have been improving. PT and OT to optimize mobility and activities of daily living towards the modified independent level. 2. Dysarthria. Evaluation and management per Speech and Language Pathology. 3. Hypertension. Will follow blood pressure and consider titrating or adding an additional agent. Given that she had hyponatremia in the hospital, would recheck a basic metabolic profile if resuming diuretic was anticipated. 4. GI symptom complex that she describes is consistent with irritable bowel syndrome. Will observe for normal bowel movements and normal appetite. Will not initiate any bowel program at present. 5. Question of ocular inflammation. Per discharge summary from the hospital, she had been taking doxycycline for about a year for eye infection. As the prescription was almost and she had no signs or symptoms of eye infection, the doxycycline was discontinued. She continues on olopatadine. 6. Question of seasonal allergies. Continue cetirizine and olopatadine. 7. Mild dyslipidemia appropriately on rosuvastatin for secondary prevention. 8. Peripheral vascular disease demonstrated on CT angiography. Continue secondary prevention. 9. Prophylaxis. Unclear regarding DVT risk, likely it has been elevated, but she does not show bethany hemiparesis and she has begun to ambulate. She will be observed for her level of mobility. Will not start pharmacologic prophylaxis at present. 10. Followup: She will see neurologist, Dr. Wills in 8-12 weeks. She will see nurse midwife, Dr. Burgos after discharge to consider treatment of the PFO versus ASD and to interrogate her pacemaker to rule out episodes of paroxysmal atrial fibrillation. She will need to establish with a primary care provider. /[id number]/MODL MTDD
[2019-03-06] MEDS: CARBOXYMETHYLCELLULOSE 0.5% 0.4 ML DROPERETTE EACHEYE SCH ×2 (17:00→21:06)
[2019-03-06] MEDS: OLOPATADINE 0.1% 5 ML OPHT.BTL EACHEYE SCH (20:59)
[2019-03-07] MEDS: CARBOXYMETHYLCELLULOSE 0.5% 0.4 ML DROPERETTE EACHEYE SCH ×4 (04:49→19:36)
[2019-03-07] MEDS: amLODIPine BESYLATE 5 MG TAB PO SCH (08:52)
[2019-03-07] MEDS: ROSUVASTATIN CALCIUM 10 MG TAB PO SCH (08:52)
[2019-03-07] MEDS: TELMISARTAN 40 MG TAB PO SCH (08:52)
[2019-03-07] MEDS: CALCIUM CARBONATE 500 MG TAB PO SCH (08:53)
[2019-03-07] MEDS: ASPIRIN 81 MG CHEWABLE TAB PO SCH (08:53)
[2019-03-07] MEDS: CETIRIZINE 10 MG TAB PO SCH (08:53)
[2019-03-07] MEDS: CLOPIDOGREL BISULFATE 75 MG TAB PO SCH (08:53)
[2019-03-07] MEDS: OLOPATADINE 0.1% 5 ML OPHT.BTL EACHEYE SCH ×2 (08:54→19:35)
[2019-03-07] MEDS ORDERED: FAMOTIDINE 20 MG TAB PO PRN (09:00)
--- NOTE | 2019-03-07 11:36 | SOAPPROG ---
SOAP Progress Note Assessment/Plan: Assessment: Cerebrovascular accident, likely right subcortical lacunar, with left-sided weakness and hemineglect, which have been improving. PT and OT to optimize mobility and activities of daily living towards the modified independent level. Dysarthria. Evaluation and management per Speech and Language Pathology. Hypertension. Will follow blood pressure and consider titrating or adding an additional agent. Given that she had hyponatremia in the hospital, would recheck a basic metabolic profile if resuming diuretic was anticipated. GI symptom complex consistent with irritable bowel syndrome. Will observe for normal bowel movements and normal appetite. Will not initiate any bowel program at present. Question of ocular inflammation. Per discharge summary from the hospital, she had been taking doxycycline for about a year for eye infection. As the prescription was almost and she had no signs or symptoms of eye infection, the doxycycline was discontinued. She continues on olopatadine. Question of seasonal allergies. Continue cetirizine and olopatadine. Mild dyslipidemia appropriately on rosuvastatin for secondary prevention. Peripheral vascular disease demonstrated on CT angiography. Continue secondary prevention. Prophylaxis. Unclear regarding DVT risk, likely it has been elevated, but she does not show bethany hemiparesis and she has begun to ambulate. She will be observed for her level of Followup: She will see neurologist, Dr. Wills in 8-12 weeks. She will see routing equipment tender, Dr. Burgos after discharge to consider treatment of the PFO versus ASD and to interrogate her pacemaker to rule out episodes of paroxysmal atrial fibrillation. She will need to establish with a primary care provider.Followup : She will see neurologist, Dr. Wills in 8-12 weeks. She will see routing equipment tender, Dr. Burgos after discharge to consider treatment of the PFO versus ASD and to interrogate her pacemaker to rule out episodes of paroxysmal atrial fibrillation. She will need to establish with a primary care provider. 03/07/19 11:36 Subjective: No complaints. Slept well. Not in pain. No fevers or chills, no cough or dyspnea. Objective: Vital Signs Temp Pulse Resp BP Pulse Ox 36.7 C 55 L 18 125/80 H 96 03/06/19 20:00 03/07/19 08:00 03/07/19 08:00 03/07/19 08:52 03/07/19 08:00 03/06/19 03/07/19 03/08/19 05:59 05:59 05:59 Intake Total 720 240 Output Total 850 Balance -130 240 Physical Exam - Physical Exam General Appearance: WD/WN, alert, no apparent distress Respiratory: normal breath sounds, No crackles, No rhonchi, No wheezing Cardiac/Chest: regular rate, rhythm, bradycardia, No edema, No diastolic murmur , No systolic murmur Skin: normal color, warm/dry Neuro/Psych: alert, normal mood/affect, oriented x 3, facial droop (left) ICD10 Worksheet Patient Problems: Problems Problem Status Onset Acute ischemic stroke Acute
--- NOTE | 2019-03-07 12:43 | PDOREHIP ---
Admission [facility] - Admission - 3 Day Assessment Period Admission Date/Day 1: 03/06/19 Day 2: 03/07/19 Day 3: 03/08/19 - Active Diagnoses Comorbidities and Co-existing Conditions at Admission: 87022. PVD or PAD - Skin Conditions Unhealed Pressure Ulcer (1 or more/Stage 1 or >)-Admission: 0. No # Stage 1 Pressure Ulcers-Admission: 0 # Stage 2 Pressure Ulcers-Admission: 0 # Stage 3 Pressure Ulcers-Admission: 0 # Stage 4 Pressure Ulcers-Admission: 0 # Unstageable Pressure Ulcers (Non-remove Dress)-Admission: 0 # Unstageable Pressure Ulcers (Slough/Eschar)-Admission: 0 # Unstageable Pressure Ulcers (Deep Tissue Injury)-Admission: 0
[2019-03-08] MEDS: amLODIPine BESYLATE 5 MG TAB PO SCH (08:59)
[2019-03-08] MEDS: CALCIUM CARBONATE 500 MG TAB PO SCH (09:00)
[2019-03-08] MEDS: CETIRIZINE 10 MG TAB PO SCH (09:00)
[2019-03-08] MEDS: CLOPIDOGREL BISULFATE 75 MG TAB PO SCH (09:00)
[2019-03-08] MEDS: ASPIRIN 81 MG CHEWABLE TAB PO SCH (09:00)
[2019-03-08] MEDS: ROSUVASTATIN CALCIUM 10 MG TAB PO SCH (09:00)
[2019-03-08] MEDS: TELMISARTAN 40 MG TAB PO SCH (09:00)
[2019-03-08] MEDS: CARBOXYMETHYLCELLULOSE 0.5% 0.4 ML DROPERETTE EACHEYE SCH ×2 (09:01→12:40)
[2019-03-08] MEDS: OLOPATADINE 0.1% 5 ML OPHT.BTL EACHEYE SCH ×2 (09:01→20:15)
[2019-03-08] MEDS: HYDROCORTISONE 1% CREAM TP SCH ×2 (12:41→20:19)
--- NOTE | 2019-03-08 16:07 | HOSPPROG ---
Hospitalist Progress Note Assessment/Plan: Cerebrovascular accident, likely right subcortical lacunar, with left-sided weakness and hemineglect, which have been improving. PT and OT to optimize mobility and activities of daily living towards the modified independent level. Dysarthria. Evaluation and management per Speech and Language Pathology. Hypertension. Will follow blood pressure and consider titrating or adding an additional agent. Given that she had hyponatremia in the hospital, would recheck a basic metabolic profile if resuming diuretic was anticipated. * BLOOD PRESSURE LOOKS PRETTY GOOD TODAY GI symptom complex consistent with irritable bowel syndrome. Will observe for normal bowel movements and normal appetite. Will not initiate any bowel program at present. Question of ocular inflammation. Per discharge summary from the hospital, she had been taking doxycycline for about a year for eye infection. As the prescription was almost and she had no signs or symptoms of eye infection, the doxycycline was discontinued. She continues on olopatadine. Question of seasonal allergies. Continue cetirizine and olopatadine. Mild dyslipidemia appropriately on rosuvastatin for secondary prevention. Peripheral vascular disease demonstrated on CT angiography. Continue secondary prevention. Prophylaxis. Unclear regarding DVT risk, likely it has been elevated, but she does not show bethany hemiparesis and she has begun to ambulate. She will be observed for her level of Subjective: no new complaints. doing well Objective: Vital Signs Temp Pulse Resp BP Pulse Ox 36.8 C 55 L 18 130/77 H 91 L 03/08/19 08:00 03/08/19 08:00 03/08/19 08:00 03/08/19 08:59 03/08/19 08:00 03/07/19 03/08/19 03/09/19 05:59 05:59 05:59 Intake Total 720 760 Output Total 850 1300 Balance -130 -540 - Physical Exam Constitutional: no apparent distress, appears nourished, not in pain Eyes: anicteric sclera, EOMI Ears, Nose, Mouth, Throat: moist mucous membranes Cardiovascular: regular rate and rhythym Respiratory: no respiratory distress, no rales or rhonchi, clear to auscultation Gastrointestinal: normoactive bowel sounds, soft, non-tender abdomen, no palpable masses Skin: warm Neurologic: AAOx3 Psychiatric: interacting appropriately, not anxious, not encephalopathic, thought process linear ICD10 Worksheet Patient Problems: Problems Problem Status Onset Acute ischemic stroke Acute
[2019-03-09] MEDS: amLODIPine BESYLATE 5 MG TAB PO SCH (08:07)
[2019-03-09] MEDS: TELMISARTAN 40 MG TAB PO SCH (08:07)
[2019-03-09] MEDS: CETIRIZINE 10 MG TAB PO SCH (08:08)
[2019-03-09] MEDS: ASPIRIN 81 MG CHEWABLE TAB PO SCH (08:08)
[2019-03-09] MEDS: ROSUVASTATIN CALCIUM 10 MG TAB PO SCH (08:08)
[2019-03-09] MEDS: CLOPIDOGREL BISULFATE 75 MG TAB PO SCH (08:08)
[2019-03-09] MEDS: CALCIUM CARBONATE 500 MG TAB PO SCH (08:08)
[2019-03-09] MEDS: OLOPATADINE 0.1% 5 ML OPHT.BTL EACHEYE SCH ×2 (08:11→20:22)
[2019-03-09] MEDS: CARBOXYMETHYLCELLULOSE 0.5% 0.4 ML DROPERETTE EACHEYE SCH ×6 (08:15→20:23)
[2019-03-09] MEDS: HYDROCORTISONE 1% CREAM TP SCH ×2 (08:15→20:22)
--- NOTE | 2019-03-09 08:41 | HOSPPROG ---
Hospitalist Progress Note Assessment/Plan: Cerebrovascular accident, likely right subcortical lacunar, with left-sided weakness and hemineglect, which have been improving. PT and OT to optimize mobility and activities of daily living towards the modified independent level. Dysarthria. Evaluation and management per Speech and Language Pathology. Hypertension. Will follow blood pressure and consider titrating or adding an additional agent. Given that she had hyponatremia in the hospital, would recheck a basic metabolic profile if resuming diuretic was anticipated. * BLOOD PRESSURE LOOKS PRETTY GOOD TODAY GI symptom complex consistent with irritable bowel syndrome. Will observe for normal bowel movements and normal appetite. Will not initiate any bowel program at present. Question of ocular inflammation. Per discharge summary from the hospital, she had been taking doxycycline for about a year for eye infection. As the prescription was almost and she had no signs or symptoms of eye infection, the doxycycline was discontinued. She continues on olopatadine. Question of seasonal allergies. Continue cetirizine and olopatadine. Mild dyslipidemia appropriately on rosuvastatin for secondary prevention. Peripheral vascular disease demonstrated on CT angiography. Continue secondary prevention. Prophylaxis. Unclear regarding DVT risk, likely it has been elevated, but she does not show bethany hemiparesis and she has begun to ambulate. She will be observed for her level of Subjective: no new complaints Objective: Vital Signs Temp Pulse Resp BP Pulse Ox 36.7 C 55 L 16 139/84 H 95 03/09/19 07:39 03/09/19 07:39 03/09/19 07:39 03/09/19 07:39 03/09/19 07:39 03/08/19 03/09/19 03/10/19 05:59 05:59 05:59 Intake Total 760 1000 Output Total 1300 1600 Balance -540 -600 - Physical Exam Constitutional: no apparent distress, appears nourished, not in pain Eyes: anicteric sclera Ears, Nose, Mouth, Throat: moist mucous membranes Cardiovascular: regular rate and rhythym Respiratory: no respiratory distress Skin: warm Neurologic: AAOx3 Psychiatric: interacting appropriately, not anxious, not encephalopathic, thought process linear ICD10 Worksheet Patient Problems: Problems Problem Status Onset Acute ischemic stroke Acute
[2019-03-10] MEDS: CARBOXYMETHYLCELLULOSE 0.5% 0.4 ML DROPERETTE EACHEYE SCH ×4 (05:50→20:04)
[2019-03-10] MEDS: CLOPIDOGREL BISULFATE 75 MG TAB PO SCH (08:27)
[2019-03-10] MEDS: TELMISARTAN 40 MG TAB PO SCH (08:27)
[2019-03-10] MEDS: amLODIPine BESYLATE 5 MG TAB PO SCH (08:27)
[2019-03-10] MEDS: ROSUVASTATIN CALCIUM 10 MG TAB PO SCH (08:27)
[2019-03-10] MEDS: CALCIUM CARBONATE 500 MG TAB PO SCH (08:27)
[2019-03-10] MEDS: ASPIRIN 81 MG CHEWABLE TAB PO SCH (08:27)
[2019-03-10] MEDS: CETIRIZINE 10 MG TAB PO SCH (08:27)
[2019-03-10] MEDS: OLOPATADINE 0.1% 5 ML OPHT.BTL EACHEYE SCH ×2 (08:28→20:05)
[2019-03-10] MEDS: HYDROCORTISONE 1% CREAM TP SCH ×2 (08:28→20:09)
[2019-03-10] MEDS ORDERED: MAGNESIUM HYDROXIDE 30 ML UDCUP PO PRN (13:09)
--- NOTE | 2019-03-10 13:11 | SOAPPROG ---
SOAP Progress Note Assessment/Plan: Assessment: Cerebrovascular accident, likely right subcortical lacunar, with left-sided weakness and hemineglect, which have been improving. * Initial functional independence measure is 93 on 03/10/2019. Standby assist for bed mobility and transfers. Ambulated 200 ft with trek pole or no device, standby assist. Climbed and descended 4 steps with trek pole, contact guard assist. Did car transfer with contact guard assist. Scored 36/56 on Franco balance inventory, indicating high fall risk. Supervision after setup for dressing upper body and lower body. Grooming and hygiene were done standing with standby assist. Bathing was done seated with setup and supervision. Bath transfer required contact guard assist. She has left neglect. * PT and OT to optimize mobility and activities of daily living towards the modified independent level. Dysarthria and left facial weakness. * Improving. Continue Speech and Language Pathology. Hypertension. Will follow blood pressure and consider titrating or adding an additional agent. Given that she had hyponatremia in the hospital, would recheck a basic metabolic profile if resuming diuretic was anticipated. GI symptom complex consistent with irritable bowel syndrome. Will observe for normal bowel movements and normal appetite. Will not initiate any bowel program at present. * Ordered MOM am as needed. Nursing reports that her usual bowel pattern is approximately once every 4 days. Question of ocular inflammation. Per discharge summary from the hospital, she had been taking doxycycline for about a year for eye infection. As the prescription was almost and she had no signs or symptoms of eye infection, the doxycycline was discontinued. She continues on olopatadine. Question of seasonal allergies. Continue cetirizine and olopatadine. Mild dyslipidemia appropriately on rosuvastatin for secondary prevention. Peripheral vascular disease demonstrated on CT angiography. Continue secondary prevention. Prophylaxis. Ambulating greater than 200 ft. No hemiparesis. No indication for pharmacologic DVT prophylaxis. DISPOSITION: Attended staffing, 15 min, 03/10/2019. Discussed with case management, nursing, dietitian, PT, OT, PROCEDURAL NURSE. Has just moved from [place] and will be living with her and daughter. Has several steps to enter. Tentative discharge date set for 03/14/2019. Will have outpatient PT OT and PROCEDURAL NURSE. Followup: She will see neurologist, Dr. Wills in 8-12 weeks. She will see tool crib lead, Dr. Burgos after discharge to consider treatment of the PFO versus ASD and to interrogate her pacemaker to rule out episodes of paroxysmal atrial fibrillation. She will need to establish with a primary care provider.Followup : She will see neurologist, Dr. Wills in 8-12 weeks. She will see tool crib lead, Dr. Burgos after discharge to consider treatment of the PFO versus ASD and to interrogate her pacemaker to rule out episodes of paroxysmal atrial fibrillation. She will need to establish with a primary care provider. 03/10/19 13:05 Subjective: No complaints. Sleeping well. Not in pain. Anxious to go home. Objective: Vital Signs Temp Pulse Resp BP Pulse Ox 37.5 C 55 L 18 139/79 H 95 03/10/19 08:00 03/10/19 08:00 03/10/19 08:00 03/10/19 08:27 03/10/19 08:00 03/09/19 03/10/19 03/11/19 05:59 05:59 05:59 Intake Total 1000 300 790 Output Total 1600 1900 Balance -600 -1600 790 - Time Spent With Patient Time Spent With Patient: Greater than 35 min floor time today, including more than 50% of time in coordination of care during staffing meeting, and counseling patient. Physical Exam - Physical Exam General Appearance: WD/WN, alert, no apparent distress Respiratory: normal breath sounds, No crackles, No rhonchi, No wheezing Cardiac/Chest: regular rate, rhythm, No edema, No diastolic murmur, No systolic murmur Skin: normal color, warm/dry Neuro/Psych: alert, normal mood/affect, oriented x 3, abnormal gait (Wide-based gait, with standby assist per PT.), facial droop (Left, improving.) ICD10 Worksheet Patient Problems: Problems Problem Status Onset Acute ischemic stroke Acute
[2019-03-10] MEDS: SENNOSIDES/DOCUSATE SODIUM TAB PO PRN (20:04)
[2019-03-11] MEDS: CARBOXYMETHYLCELLULOSE 0.5% 0.4 ML DROPERETTE EACHEYE SCH ×4 (06:01→20:12)
[2019-03-11] MEDS: CALCIUM CARBONATE 500 MG TAB PO SCH (08:59)
[2019-03-11] MEDS: ASPIRIN 81 MG CHEWABLE TAB PO SCH (08:59)
[2019-03-11] MEDS: CETIRIZINE 10 MG TAB PO SCH (08:59)
[2019-03-11] MEDS: CLOPIDOGREL BISULFATE 75 MG TAB PO SCH (08:59)
[2019-03-11] MEDS: ROSUVASTATIN CALCIUM 10 MG TAB PO SCH (08:59)
[2019-03-11] MEDS: amLODIPine BESYLATE 5 MG TAB PO SCH (09:40)
[2019-03-11] MEDS: TELMISARTAN 40 MG TAB PO SCH (09:40)
[2019-03-11] MEDS: OLOPATADINE 0.1% 5 ML OPHT.BTL EACHEYE SCH ×2 (09:55→21:18)
[2019-03-11] MEDS: HYDROCORTISONE 1% CREAM TP SCH ×3 (09:56→21:19)
--- NOTE | 2019-03-11 11:37 | SOAPPROG ---
SOAP Progress Note Assessment/Plan: Assessment: Cerebrovascular accident, likely right subcortical lacunar, with left-sided weakness and hemineglect, which have been improving. * Initial functional independence measure is 93 on 03/10/2019. Standby assist for bed mobility and transfers. Ambulated 200 ft with trek pole or no device, standby assist. Climbed and descended 4 steps with trek pole, contact guard assist. Did car transfer with contact guard assist. Scored 36/56 on Franco balance inventory, indicating high fall risk. Supervision after setup for dressing upper body and lower body. Grooming and hygiene were done standing with standby assist. Bathing was done seated with setup and supervision. Bath transfer required contact guard assist. She has left neglect. * Advancing to independent in room 7 AM to 7 PM, 03/11/2019. * PT and OT to optimize mobility and activities of daily living towards the modified independent level. Dysarthria and left facial weakness. * Improving. Continue Speech and Language Pathology. Hypertension. Will follow blood pressure and consider titrating or adding an additional agent. Given that she had hyponatremia in the hospital, would recheck a basic metabolic profile if resuming diuretic was anticipated. Nocturnal headaches. Unclear etiology Nursing to check vitals when she has headache. GI symptom complex consistent with irritable bowel syndrome. Will observe for normal bowel movements and normal appetite. Will not initiate any bowel program at present. * Ordered MOM am as needed. Nursing reports that her usual bowel pattern is approximately once every 4 days. Question of ocular inflammation. Per discharge summary from the hospital, she had been taking doxycycline for about a year for eye infection. As the prescription was almost and she had no signs or symptoms of eye infection, the doxycycline was discontinued. She continues on olopatadine. Question of seasonal allergies. Continue cetirizine and olopatadine. Mild dyslipidemia appropriately on rosuvastatin for secondary prevention. Peripheral vascular disease demonstrated on CT angiography. Continue secondary prevention. Prophylaxis. Ambulating greater than 200 ft. No hemiparesis. No indication for pharmacologic DVT prophylaxis. DISPOSITION: Attended staffing, 15 min, 03/10/2019. Discussed with case management, nursing, dietitian, PT, OT, SENSOR SPECIALIST. Has just moved from [place] and will be living with her and daughter. Has several steps to enter. Tentative discharge date set for 03/14/2019. Will have outpatient PT OT and SENSOR SPECIALIST. Followup: She will see neurologist, Dr. Wills in 8-12 weeks. She will see employee benefits attorney, Dr. Burgos after discharge to consider treatment of the PFO versus ASD and to interrogate her pacemaker to rule out episodes of paroxysmal atrial fibrillation. She will need to establish with a primary care provider.Followup : She will see neurologist, Dr. Wills in 8-12 weeks. She will see employee benefits attorney, Dr. Burgos after discharge to consider treatment of the PFO versus ASD and to interrogate her pacemaker to rule out episodes of paroxysmal atrial fibrillation. She will need to establish with a primary care provider. 03/11/19 11:35 Subjective: Has had headaches at night, about 2 AM, X 2 nights. Not sure if they awaken her or if she is already awake and then notices them. Located right posterior. Not pounding, no nausea. Otherwise no complaints. No f/c, c/d. Objective: Vital Signs Temp Pulse Resp BP Pulse Ox 36.7 C 55 L 16 126/70 H 95 03/11/19 06:06 03/11/19 06:06 03/11/19 06:06 03/11/19 09:40 03/11/19 06:06 03/10/19 03/11/19 03/12/19 05:59 05:59 05:59 Intake Total 300 890 Output Total 1900 Balance -1600 890 Physical Exam - Physical Exam General Appearance: WD/WN, alert, no apparent distress Respiratory: normal breath sounds, No crackles, No rhonchi, No wheezing Cardiac/Chest: regular rate, rhythm, systolic murmur, No edema, No JVD Skin: normal color, warm/dry Neuro/Psych: alert, normal mood/affect, oriented x 3, facial droop (minimal on left) ICD10 Worksheet Patient Problems: Problems Problem Status Onset Acute ischemic stroke Acute
[2019-03-11] MEDS: SENNOSIDES/DOCUSATE SODIUM TAB PO PRN (21:15)
[2019-03-12] MEDS: CARBOXYMETHYLCELLULOSE 0.5% 0.4 ML DROPERETTE EACHEYE SCH ×4 (07:36→19:57)
[2019-03-12] MEDS: amLODIPine BESYLATE 5 MG TAB PO SCH (08:01)
[2019-03-12] MEDS: ASPIRIN 81 MG CHEWABLE TAB PO SCH (08:01)
[2019-03-12] MEDS: CLOPIDOGREL BISULFATE 75 MG TAB PO SCH (08:01)
[2019-03-12] MEDS: CALCIUM CARBONATE 500 MG TAB PO SCH (08:01)
[2019-03-12] MEDS: CETIRIZINE 10 MG TAB PO SCH (08:01)
[2019-03-12] MEDS: ROSUVASTATIN CALCIUM 10 MG TAB PO SCH (08:02)
[2019-03-12] MEDS: TELMISARTAN 40 MG TAB PO SCH (08:02)
[2019-03-12] MEDS: OLOPATADINE 0.1% 5 ML OPHT.BTL EACHEYE SCH ×2 (08:03→19:59)
[2019-03-12] MEDS: HYDROCORTISONE 1% CREAM TP SCH ×2 (08:10→19:59)
--- NOTE | 2019-03-12 11:48 | SOAPPROG ---
SOAP Progress Note Assessment/Plan: Assessment: Cerebrovascular accident, likely right subcortical lacunar, with left-sided weakness and hemineglect, which have been improving. * Initial functional independence measure is 93 on 03/10/2019. Standby assist for bed mobility and transfers. Ambulated 200 ft with trek pole or no device, standby assist. Climbed and descended 4 steps with trek pole, contact guard assist. Did car transfer with contact guard assist. Scored 36/56 on Franco balance inventory, indicating high fall risk. Supervision after setup for dressing upper body and lower body. Grooming and hygiene were done standing with standby assist. Bathing was done seated with setup and supervision. Bath transfer required contact guard assist. She has left neglect. * Advancing to independent in room 7 AM to 7 PM, 03/11/2019. * PT and OT to optimize mobility and activities of daily living towards the modified independent level. Dysarthria and left facial weakness. * Improving. Continue Speech and Language Pathology. Hypertension. Will follow blood pressure and consider titrating or adding an additional agent. Given that she had hyponatremia in the hospital, would recheck a basic metabolic profile if resuming diuretic was anticipated. Nocturnal headaches. Unclear etiology Nursing to check vitals when she has headache. GI symptom complex consistent with irritable bowel syndrome. Will observe for normal bowel movements and normal appetite. Will not initiate any bowel program at present. * Ordered MOM am as needed. Nursing reports that her usual bowel pattern is approximately once every 4 days. * Discussed with patient and nursing. Trial of bisacodyl suppository, if that is not successful, enema, 03/12/2019. Question of ocular inflammation. Per discharge summary from the hospital, she had been taking doxycycline for about a year for eye infection. As the prescription was almost and she had no signs or symptoms of eye infection, the doxycycline was discontinued. She continues on olopatadine. Question of seasonal allergies. Continue cetirizine and olopatadine. Mild dyslipidemia appropriately on rosuvastatin for secondary prevention. Peripheral vascular disease demonstrated on CT angiography. Continue secondary prevention. Prophylaxis. Ambulating greater than 200 ft. No hemiparesis. No indication for pharmacologic DVT prophylaxis. DISPOSITION: Attended staffing, 15 min, 03/10/2019. Discussed with case management, nursing, dietitian, PT, OT, CIRCLE SAW OPERATOR. Has just moved from [place] and will be living with her and daughter. Has several steps to enter. Tentative discharge date set for 03/14/2019. Will have outpatient PT OT and CIRCLE SAW OPERATOR. Followup: She will see neurologist, Dr. Wills in 8-12 weeks. She will see park superintendent, Dr. Burgos after discharge to consider treatment of the PFO versus ASD and to interrogate her pacemaker to rule out episodes of paroxysmal atrial fibrillation. She will need to establish with a primary care provider.Followup : She will see neurologist, Dr. Wills in 8-12 weeks. She will see park superintendent, Dr. Burgos after discharge to consider treatment of the PFO versus ASD and to interrogate her pacemaker to rule out episodes of paroxysmal atrial fibrillation. She will need to establish with a primary care provider. 03/12/19 11:46 Subjective: Continues to have constipation. Otherwise without complaints. Sleeping well, not in pain and no abdominal pain, no cough or dyspnea, no fevers or chills. Objective: Vital Signs Temp Pulse Resp BP Pulse Ox 36.7 C 55 L 15 141/83 H 94 03/12/19 07:57 03/12/19 07:57 03/12/19 07:57 03/12/19 08:01 03/12/19 07:57 03/11/19 03/12/19 03/13/19 05:59 05:59 05:59 Intake Total 890 1400 Balance 890 1400 Physical Exam - Physical Exam General Appearance: WD/WN, alert, no apparent distress Respiratory: No respiratory distress, No accessory muscle use Skin: normal color, warm/dry Neuro/Psych: alert, normal mood/affect, oriented x 3, No motor weakness ICD10 Worksheet Patient Problems: Problems Problem Status Onset Acute ischemic stroke Acute
[2019-03-13] MEDS: OLOPATADINE 0.1% 5 ML OPHT.BTL EACHEYE SCH ×2 (07:27→21:06)
[2019-03-13] MEDS: CARBOXYMETHYLCELLULOSE 0.5% 0.4 ML DROPERETTE EACHEYE SCH ×3 (07:28→21:06)
[2019-03-13] MEDS: CLOPIDOGREL BISULFATE 75 MG TAB PO SCH (08:21)
[2019-03-13] MEDS: CALCIUM CARBONATE 500 MG TAB PO SCH (08:22)
[2019-03-13] MEDS: amLODIPine BESYLATE 5 MG TAB PO SCH (08:22)
[2019-03-13] MEDS: TELMISARTAN 40 MG TAB PO SCH (08:22)
[2019-03-13] MEDS: ASPIRIN 81 MG CHEWABLE TAB PO SCH (08:22)
[2019-03-13] MEDS: ROSUVASTATIN CALCIUM 10 MG TAB PO SCH (08:22)
[2019-03-13] MEDS: CETIRIZINE 10 MG TAB PO SCH (08:22)
[2019-03-13] MEDS: HYDROCORTISONE 1% CREAM TP SCH ×2 (08:23→21:06)
[2019-03-14] MEDS: CARBOXYMETHYLCELLULOSE 0.5% 0.4 ML DROPERETTE EACHEYE SCH (05:54)
[2019-03-14 07:58] VITALS: BP 139/84
[2019-03-14] MEDS: ROSUVASTATIN CALCIUM 10 MG TAB PO SCH (08:00)
[2019-03-14] MEDS: TELMISARTAN 40 MG TAB PO SCH (08:00)
[2019-03-14] MEDS: OLOPATADINE 0.1% 5 ML OPHT.BTL EACHEYE SCH (08:00)
[2019-03-14] MEDS: CLOPIDOGREL BISULFATE 75 MG TAB PO SCH (08:00)
[2019-03-14] MEDS: ASPIRIN 81 MG CHEWABLE TAB PO SCH (08:00)
[2019-03-14] MEDS: CETIRIZINE 10 MG TAB PO SCH (08:00)
[2019-03-14] MEDS: CALCIUM CARBONATE 500 MG TAB PO SCH (08:00)
[2019-03-14] MEDS: HYDROCORTISONE 1% CREAM TP SCH (08:03)
--- NOTE | 2019-03-14 11:02 | PDOREHIP ---
Admission [facility] - Admission - 3 Day Assessment Period Admission Date/Day 1: 03/06/19 Day 2: 03/07/19 Day 3: 03/08/19 - Active Diagnoses Comorbidities and Co-existing Conditions at Admission: 18508. PVD or PAD Discharge [facility] - Discharge - 3 Day Assessment Period 2 Days Prior to Anticipated Discharge Date: 03/12/19 1 Day Prior to Anticipated Discharge Date: 03/13/19 Anticipated Discharge Date: 03/14/19 - Discharge Skin Conditions Unhealed Pressure Ulcer (1 or more/Stage 1 or >)-Discharge: 0. No # Stage 1 Pressure Ulcers-Discharge: 0 # Stage 2 Pressure Ulcers-Discharge: 0 # of These Stage 2 Pressure Ulcers Present on Admission: 0 # Stage 3 Pressure Ulcers-Discharge: 0 # of These Stage 3 Pressure Ulcers Present on Admission: 0 # Stage 4 Pressure Ulcers-Discharge: 0 # of These Stage 4 Pressure Ulcers Present on Admission: 0 # Unstageable Pressure Ulcers (Non-remove Dress)-Discharge: 0 # These Unstageable Pressure Ulcers (NRD)-Present on Admit: 0 # Unstageable Pressure Ulcers (Slough/Eschar)-Discharge: 0 # These Unstageable Pressure Ulcers(Slough) Present on Admit: 0 # Unstageable Pressure Ulcers (Deep Tissue Injury)-Discharge: 0 # These Unstageable Pressure Ulcers (DTI) Present on Admit: 0
--- NOTE | 2019-03-14 12:36 | GDS ---
[f rep st] DISCHARGE SUMMARY ADMISSION DIAGNOSIS: Cerebrovascular accident, right subcortical with left hemineglect and left weakness. DISCHARGE DIAGNOSIS: Cerebrovascular accident, right subcortical with left hemineglect and left weakness. OTHER DISCHARGE DIAGNOSES: 1. Hypertension. 2. Irritable bowel syndrome. 3. Peripheral vascular disease. COMPLICATIONS: There were none. CONSULTATIONS: There were none. PROCEDURES: There were none. HISTORY AND HOSPITAL COURSE: This patient was admitted from [facility]. She had presented there on 03/04/2019 with left- sided weakness and ataxia. She has a pacemaker which was not compatible with MR imaging, so no MRI could be done. CT of the head showed no acute findings and CT angiography showed no blockages of the cerebral vasculature. However, it did show evidence of vascular disease in vessels below the head and neck, consistent with peripheral vascular disease. She had an echocardiogram which showed a possible intracardiac shunt. Her pacer was interrogated, and there was no atrial fibrillation shown nor had there been atrial fibrillation seen on telemetry. She was medically stable and appropriate for inpatient rehabilitation. She did well in rehabilitation and largely regained her functional independence. She was ambulating greater than 200 feet with a trek pole or with no device and progressed to being independent with ambulation. She initially scored a 36/56 on the Franco Balance Inventory indicating high fall risk , but on subsequent testing, did not have elevated fall risk either on the Franco Balance Inventory or on the Dynamic Gait Index. She climbed and descended 12 steps with a step over step pattern and 1 rail with cues for safety. She achieved independence with activities of daily living. She continued to have left hemineglect and was advised to not return to driving until she is cleared either by occupational therapy pre-driving screening or through her physicians. Blood pressures were often above target for secondary prevention. She was treated out of the hospital with amlodipine 5 mg daily and telmisartan 80 mg daily. On the day of discharge, amlodipine was increased to 10 mg daily and blood pressure on the day of discharge was 139/84. If blood pressure remains above target, consider restarting hydrochlorothiazide which she had been taking prior to her stroke. She had GI symptoms consistent with constipation-predominant irritable bowel syndrome. She has her own bowel regimen at home. At the rehab facility, she responded to senna, as well as a bisacodyl suppository. Regarding peripheral vascular disease that was seen on the CT angiography in the hospital, she will benefit from the same secondary prevention as for her stroke. DISPOSITION: Home with her . CONDITION: Good. DIET: Regular. ACTIVITY: Ad vane but she is not to be driving. MEDICATIONS UPON DISCHARGE: 1. Amlodipine 10 mg p.o. daily. 2. Aspirin 81 mg p.o. daily. 3. Calcium carbonate 500 mg p.o. daily. 4. Artificial Tears p.r.n. 5. Cetirizine 10 mg p.o. daily. 6. Clopidogrel 75 mg p.o. daily through March 25. 7. Olopatadine 0.1% 1 drop each eye b.i.d. 8. Ranitidine 75 mg p.o. daily p.r.n. 9. Rosuvastatin 10 mg p.o. daily. 10. Senna/docusate 1 to 2 tabs p.o. b.i.d. p.r.n. 11. Telmisartan 80 mg p.o. daily. ISSUES TO BE ADDRESSED AT FOLLOWUP: 1. Mobility and activities of daily living. She will continue outpatient PT, OT, and SOFTWARE CLIENT ARCHITECT. 2. Intracardiac shunt. She will follow up with Dr. Burgos, piano technician, after discharge for repeat interrogation of her pacemaker to rule out episodes of paroxysmal atrial fibrillation and to consider treatment of the PFO versus ASD. 3. Cerebrovascular accident. She will see neurologist, Dr. Wills, in 8 to 12 weeks. 4. Hypertension. Advised continuing blood pressure monitoring. Consider restarting hydrochlorothiazide. She can follow up with primary care regarding this issue. Greater than 30 minutes were spent on this discharge including medication reconciliation, coordination of care, and counseling patient. /[id number]/MODL MTDD
== END 2019-03-14 11:57 | disposition home health service (06) | DRG 57 ==
LOC: F3E 14:00
PROVIDERS: ADMIT Internal Medicine Hospice and Palliative Medicine; ATTEND Internal Medicine Hospice and Palliative Medicine
DX: I69.354 Hemiplegia and hemiparesis following cerebral infarction affecting left non-dominant side (principal); I69.393 Ataxia following cerebral infarction; I69.822 Dysarthria following other cerebrovascular disease; I69.912 Visuospatial deficit and spatial neglect following unspecified cerebrovascular disease; I10 Essential (primary) hypertension; E87.1 Hypo-osmolality and hyponatremia; K58.2 Mixed irritable bowel syndrome; E78.5 Hyperlipidemia, unspecified; I73.9 Peripheral vascular disease, unspecified; Z95.0 Presence of cardiac pacemaker; Z85.820 Personal history of malignant melanoma of skin; Z85.41 Personal history of malignant neoplasm of cervix uteri
CPT/HCPCS: 92507-GN; 92523-GN; 92526-GN; 92610-GN; 97110-GO; 97110-GP; 97112-GO; 97112-GP; 97116-GP; 97161-GP; 97165-GO; 97530-GO; 97530-GP; 97535-GO; G0515-GO